=== PATIENT | male | born 2000 | race Caucasian/White ===

== ENCOUNTER 2023-09-24 08:38 | Outpatient (CLI) | payer BC, SELFPAY | END 2023-09-24 08:39 | disposition home or self-care (01) | LOC: NFLDREF 09-29 12:43 | DX: R19.7 Diarrhea, unspecified (principal) | CPT/HCPCS: 87505 ==

== ENCOUNTER 2024-03-17 08:14 | Outpatient (CLI) | payer BC, SELFPAY | END 2024-03-17 08:15 | disposition home or self-care (01) | LOC: NFLDREF 03-18 08:08 | PROVIDERS: Visit Provider Family Medicine | DX: R10.13 Epigastric pain (principal) | CPT/HCPCS: 87338 ==

== ENCOUNTER 2024-04-07 11:08 | Outpatient (CLI) | payer BC, SELFPAY | END 2024-04-07 11:09 | disposition home or self-care (01) | PROVIDERS: PCP Family Medicine; Visit Provider Family Medicine | DX: R10.9 Unspecified abdominal pain (principal) | CPT/HCPCS: 80053 ==